=== PATIENT | female | born 1975 | race Caucasian/White ===

== ENCOUNTER → 2019-04-27 11:57 | Outpatient (BNVA) | payer MEDICARE, SELFPAY | PROVIDERS: Family Provider Counselor Professional; Visit Provider Psychiatry & Neurology Psychiatry | DX: F43.12 Post-traumatic stress disorder, chronic (principal); F31.9 Bipolar disorder, unspecified | CPT/HCPCS: 99213 ==

== ENCOUNTER → 2019-06-07 09:42 | Outpatient (BNVA) | payer MEDICARE, MEDICAID, SELFPAY | PROVIDERS: Family Provider Counselor Professional; Visit Provider Psychiatry & Neurology Psychiatry | DX: F33.2 Major depressive disorder, recurrent severe without psychotic features (principal); F43.12 Post-traumatic stress disorder, chronic; F43.10 Post-traumatic stress disorder, unspecified | CPT/HCPCS: 80178; 99213 ==

== ENCOUNTER → 2019-11-16 08:23 | Outpatient (BNVA) | payer MEDICARE, MEDICAID, SELFPAY | PROVIDERS: Family Provider Counselor Professional; Visit Provider Psychiatry & Neurology Psychiatry | DX: F33.2 Major depressive disorder, recurrent severe without psychotic features (principal); F43.12 Post-traumatic stress disorder, chronic | CPT/HCPCS: 99213 ==